=== PATIENT | female | born 1960 | race American Indian/Alaskan Native ===

== ENCOUNTER → 2021-09-04 | Outpatient (REF) ==
[~2021-09-04] MED LIST: AUGM875T28 PO; CLONI1TA PO; CYCL-707 PO; DULO30CA9 PO; GABA-283 PO; NORC1TAB8 PO; ONDA4TAB6 PO; PANT40TA29 PO; PENT1TAB8 PO; PROP60TA14 PO; QUET100T2 PO; ROPI1TAB3 PO; TOPI200T7 PO
== END ==
LOC: M LABCFH 13:28
DX: D64.9 Anemia, unspecified (principal)

== ENCOUNTER → 2024-04-24 | Outpatient (REF) ==
[~2024-04-24] MED LIST changes: +ATOR1TAB21; +CARV6.25; +CELE10TA PO; +CEPH500C; +CVS5000S2 PO; -GABA-283 PO; +GABA-284 PO; +IRON1TAB2 PO; +LISI2.5T8 PO; +NEUR300C PO; +ONDA-282; +ONDA-282 PO; -ONDA4TAB6 PO; +POTA99CA2 PO; +RA N1TAB PO; -ROPI1TAB3 PO; +ROPI1TAB73 PO; +TOPA50TA8 PO; +VITA-243 PO; +[UNRECOGNIZED DRUG - CODE] PO
== END ==
LOC: M LAB REF 11:58
DX: N39.0 Urinary tract infection, site not specified (principal)